=== PATIENT | male | born 1990 | race Caucasian/White ===

== ENCOUNTER 2018-06-16 13:41 | Day surgery (SDC) | payer BC, OTHER ==
--- NOTE | 2018-06-16 08:10 | PDHPUP ---
History & Physical Update H&P update statement: This history and physical update is based on an assessment of the patient which was completed after admission or registration (within 24 hours), but prior to the surgery/procedure. H&P update: H&P reviewed & patient examined, no change in patient's condition since H&P completed
[2018-06-16] MEDS ORDERED: LR 1,000 ML IV ONE (14:05)
[2018-06-16] MEDS ORDERED: BUPIVACAINE/EPI 0.5% 30 ML SDV ONE (14:15)
[2018-06-16] MEDS ORDERED: MIDAZOLAM 2 MG/2 ML VIAL ONE (15:19)
[2018-06-16] MEDS ORDERED: fentaNYL 100 MCG/2 ML INJ ONE (15:23)
[2018-06-16] MEDS ORDERED: PROPOFOL 200 MG/20 ML VIAL ONE ×2 (15:24→15:32)
[2018-06-16] MEDS ORDERED: ONDANSETRON 4 MG/2 ML VIAL ONE (15:24)
[2018-06-16] MEDS ORDERED: ROCURONIUM 50 MG/5 ML VIAL ONE (15:24)
[2018-06-16] MEDS ORDERED: DEXAMETHASONE 4 MG/ML VIAL ONE (15:24)
[2018-06-16] MEDS ORDERED: KETOROLAC 30 MG/1 ML SDV ONE (15:24)
[2018-06-16] MEDS ORDERED: LIDOCAINE 2% 5 ML SDV ONE (15:24)
--- NOTE | 2018-06-16 15:46 | PDANEPAE ---
ANE History of Present Illness b lap ing hernia ANE Past Medical History - Cardiovascular History Hx Hypertension: No Hx Arrhythmias: No Hx Chest Pain: No Hx Coronary Artery / Peripheral Vascular Disease: No Hx CHF / Valvular Disease: No Hx Palpitations: No - Pulmonary History Hx COPD: No Hx Asthma/Reactive Airway Disease: No Hx Recent Upper Respiratory Infection: No Hx Oxygen in Use at Home: No Hx Sleep Apnea: No Sleep Apnea Screening Result - Last Documented: Negative - Neurologic History Hx Cerebrovascular Accident: No Hx Seizures: No Hx Dementia: No - Endocrine History Hx Diabetes: No Hypothyroid: No Hyperthyroid: No Obesity: no - Renal History Hx Renal Disorders: No - Liver History Hx Hepatic Disorders: No - Neurological & Psychiatric Hx Hx Neurological and Psychiatric Disorders: No - Cancer History Hx Cancer: No - Congenital Disorder History Hx Congenital Disorders: No - GI History GERD: mild Hx Gastrointestinal Disorders: No Gastrointestinal History Comment: occasional diet-dependent HB - Other Health History Other Health History: NEG - Chronic Pain History Chronic Pain: No - Surgical History Prior Surgeries: NONE ANE Review of Systems Review of Systems: - Exercise capacity Exercise capacity: >=4 METS METS (RN): 6 METS ANE Patient History - Allergies Allergies/Adverse Reactions: cefaclor [From Ceclor] Allergy (Verified 06/14/18 11:22) HIVES,SKIN PEELING Sulfa (Sulfonamide Antibiotics) [Sulfa(Sulfonamide Antibiotics)] Allergy ( Verified 06/14/18 11:22) HIVES,SKIN PEELING - Home Medications Home medications: home medication list seen and reviewed Home Medications: Propecia 09/02/13 [Last Taken 06/15/18] - NPO status NPO Status: no food or drink >8 hours NPO Since - Liquids (Date): 06/16/18 NPO Since - Liquids (Time): 08:00 NPO Since - Solids (Date): 06/15/18 NPO Since - Solids (Time): 12:00 - Anes Hx Anes Hx: no prior problems - Smoking Hx Smoking Status: Former smoker - Family Anes Hx Family Hx Anesthesia Complications: NONE ANE Labs/Vital Signs - Vital Signs Blood Pressure: 133/80 Heart Rate: 50 Respiratory Rate: 14 O2 Sat (%): 99 Height: 177.8 cm Weight: 81.647 kg ANE Physical Exam - Airway Mallampati Score: Class 2 Mouth exam: normal dental/mouth exam - Pulmonary Pulmonary: no respiratory distress - Cardiovascular Cardiovascular: regular rate and rhythym - ASA Status ASA Status: I ANE Anesthesia Plan Anesthesia Plan: GA w LMA
[2018-06-16] MEDS ORDERED: SUGAMMADEX SODIUM 200 MG/2 ML VIAL IVP ONE ×2 (16:02→16:08)
[2018-06-16] MEDS ORDERED: fentaNYL 100 MCG/2 ML INJ IVP PRN (16:05)
[2018-06-16] MEDS ORDERED: NALOXONE HCL 0.4 MG/ML INJ IVP PRN ×2 (16:05→16:20)
[2018-06-16] MEDS ORDERED: HYDROmorphONE/DILAUDID 2 MG/ML INJ IVP PRN (16:05)
[2018-06-16] MEDS ORDERED: HYDROCODONE/APAP 5/325 TAB PO PRN (16:05)
[2018-06-16] MEDS ORDERED: ALBUTEROL 3 ML DEYVIAL IH PRN (16:05)
[2018-06-16] MEDS ORDERED: LR 500 ML IV PRN (16:05)
[2018-06-16] MEDS ORDERED: ONDANSETRON 4 MG/2 ML VIAL IVP PRN (16:05)
--- NOTE | 2018-06-16 16:07 | POSTOPPROG ---
Post Op Note Date of Operation: 06/16/18 Surgeon: Adriel Henao Milk Vendor: Olya Coombs Anesthesiologist: Jozef Humphrey Anesthesia: GET(General Endotracheal) Pre-op Diagnosis: RIH Post-op Diagnosis: Same Procedure: Lap BIH Findings: chronic indirect RIH Inf/Abcess present in the surg proc area at time of surgery?: No EBL: Minimal Specimen(s): no immediate
[2018-06-16] MEDS ORDERED: LABETALOL HCL 5 MG/ML 20 ML MDV IVP PRN (16:20)
--- NOTE | 2018-06-16 16:20 | POSTANESTH ---
Post Anesthetic Evaluation Cardiovascular Status: Normal, Stable Respiratory Status: Normal, Stable Level of Consciousness/Mental Status: Can Participate in Eval Pain Control: Adequate, Prn Tx Ordered Nausea/Vomiting Control: Adequate, Prn Tx Ordered Complications Possibly Related to Anesthesia: None Noted
[2018-06-16 17:11] VITALS: BP 131/74
--- NOTE | 2018-06-16 17:43 | GOP ---
[f rep st] OPERATIVE REPORT DATE OF OPERATION: 06/16/2018 SURGEON: Adriel Henao MD MAINTENANCE JOB TITLES: NO Rinaldi. PREOPERATIVE DIAGNOSIS: Right inguinal hernia. POSTOPERATIVE DIAGNOSIS: PROCEDURE PERFORMED: Laparoscopic right inguinal herniorrhaphy with prophylactic left inguinal herni a repair. FINDINGS: INDICATIONS: A 27-year-old healthy male with a symptomatic right inguinal hernia. He is undergoing surgical repair at this time. Risks and benefits were explained of bleeding, infection, open convers ion, bladder injury as well as recurrence. All questions were answered. He desires to proceed. A s urgical farm assistant is standard, necessary and customary for the safe performance of this procedure. DESCRIPTION OF PROCEDURE: General anesthesia was induced. The abdomen was preinjected with 0.5% Mar nano with epinephrine. A curvilinear infraumbilical incision was created. The right anterior rectu s sheath fascia was opened. The preperitoneal space was developed with a balloon Gale trocar and _ were identified. A structure balloon was inserted followed by two 5 mm lower midline ports . Bilateral spermatic cords were circumferentially dissected out. There was a very large chronic in direct right-sided sac. The sac was skeletonized away from the cord structures and allowed to fall b ack toward the abdominal space. The direct space appeared normal. A large 3D patch was inserted and secured with multiple absorbable tacks. The contralateral groin showed no evidence of direct and/or indirect defect. A large 3D patch was inserted and secured prophylactically in mirror-image fashion . Satisfactory hemostasis was assured. The entire myopectineal surface was covered. Trocars were r emoved under direct visualization. The anterior rectus sheath fascia was closed with Vicr yl suture. The wounds were closed with Monocryl by Dermabond. The patient was taken to [facility] unevent[facility]. /[id number]/MODL
== END 2018-06-16 17:18 | disposition home or self-care (01) ==
LOC: FSGY 13:41
PROVIDERS: ATTEND Surgery
PROC: 0YUA4JZ Supplement Bilateral Inguinal Region with Synthetic Substitute, Percutaneous Endoscopic Approach (ICD-10-PCS; principal; 2018-06-16 15:15)
DX: K40.00 Bilateral inguinal hernia, with obstruction, without gangrene, not specified as recurrent (principal)
CPT/HCPCS: C1727; C1781; J1100; J1885; J2250; J2405; J2704; J3010